=== PATIENT | female | born 1960 | race Caucasian/White ===

== ENCOUNTER 2017-01-12 12:38 | Emergency (ER) | payer OTHER ==
[~2017-01-12 12:38] MED LIST: AMLO1CAP5 PO; DEXA5DRO OP
--- NOTE | 2017-01-12 13:54 | RAD ---
CT abdomen and pelvis without contrast History: Hematuria, left flank pain since previous day. Comparison: None. Technique: Helical CT of the abdomen and pelvis was performed without intravenous or oral contrast. Axial, sagittal, and coronal reconstructions were obtained. One or more of the following individualized dose reduction techniques were utilized for the study: Automated exposure control Adjustment of mA and/or kV according to patient's size Use of iterative reconstruction technique. Findings: Evaluation of the solid organs is limited by lack of intravenous contrast. Evaluation of enteric structures may be limited by lack of oral contrast. There is also motion artifact at several levels which could obscure subtle abnormalities. Fatty liver disease is seen. Spleen, pancreas, and bilateral adrenal glands are unremarkable. Gallbladder is absent. There is no evidence of bowel obstruction. No free air or free fluid is identified in the abdomen or pelvis. Appendix appears within normal limits. Urinary bladder is unremarkable. Bilateral tubal ligation clips are seen. Uterus and adnexa are otherwise unremarkable appearance. Bilateral kidneys and ureters are free of stone or obstruction. Small fat-containing umbilical hernia is seen. Degenerative changes are present in spine. Impression: 1. No acute abnormality identified in the abdomen or pelvis. No evidence of urinary stone. 2. Small fat-containing umbilical hernia.
[2017-01-12 13:55] LABS: BILIRUBIN,URINE NEG (NEG); CLARITY,URINE CLEAR; COLOR,URINE YELLOW; GLUCOSE,URINE NEG (NEG)
[2017-01-12 13:56] LABS: NITRITE,URINE NEG (NEG); UROBILINOGEN,URINE 0.2 mg/dL (0.2 mg/dL)
[2017-01-12 14:02] LABS: BACTERIA,URINE FEW /HPF (0-FEW); GRANULAR CASTS,URINE FEW /HPF; HYALINE CASTS, URINE FEW /HPF; SQUAMOUS EPITHELIAL CELL,UR FEW /LPF
[2017-01-12 14:30] VITALS: BP 133/83
--- NOTE | 2017-01-12 16:45 | ED.ADGEN ---
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 Patient states pain first in 4 days ago when she was stretching while reaching with an outstretched left arm. Patient has since had 4 -5 episodes of sharp, left-sided chest wall pain worse with movement and arm use. Most recent episode occurred just prior to ED arrival. Patient's taken ibuprofen and Tylenol for pain. She is currently pain-free. No other acute symptoms or complaints. Review of Systems Review of Systems ROS as per HPI. Allergies Allergies Allergies Coded Allergies Type Severity Reaction Last Updated Verified morphine Adverse Reaction Mild N/V 10/08/15 Yes Physical Exam Physical Exam Constitutional: Well developed, well nourished, no acute distress, non-toxic appearance. HENT: Normocephalic, atraumatic, bilateral external ears normal, oropharynx moist, no oral exudates, nose normal. Eyes: PERRLA, EOMI, conjunctiva normal. Neck: Normal range of motion, no tenderness. Cardiovascular:Heart rate regular rhythm, no murmur. Lungs & Thorax: Bilateral breath sounds clear to auscultation. Left lower mid axillary chest wall pain, tenderness reproduces with palpation and trunk rotation. No subcutaneous emphysema bony crepitus or hernia appreciated. Abdomen: Bowel sounds normal, soft, no tenderness. Skin: Warm, dry, no erythema, no rash. Back: No tenderness. Extremities: No tenderness, no cyanosis, no clubbing, ROM intact, no edema. Neurologic: Alert and oriented X 3, normal motor function, normal sensory function, no focal deficits noted. Psychologic: Affect normal, judgement normal, mood normal. Current Patient Data Vital Signs Vital Signs Date Time Temp Pulse Resp B/P Pulse Ox O2 Delivery O2 Flow Rate FiO2 01/12/17 14:30 89 18 133/83 98 Room Air 01/12/17 12:38 97.9 Lab Results Laboratory Tests Test 01/12/17 13:15 Urine Collection Type Unknown Urine Color Yellow Urine Clarity Clear Urine pH 5.0 Urine Specific [place] 1.025 Urine Protein Neg (NEG-TRACE) Urine Glucose (UA) Negmg/dL (NEG) Urine Ketones (Stick) Negmg/dL (NEG) Urine Blood Trace (NEG) Urine Nitrite Neg (NEG) Urine Bilirubin Neg (NEG) Urine Urobilinogen Dipstick 0.2mg/dL (0.2 mg/dL) Urine Leukocyte Esterase Neg (NEG) Urine RBC 3-5/HPF (0-2) Urine WBC 1-4/HPF (0-4) Urine Squamous Epithelial Cells Few/LPF Urine Bacteria Few/HPF (0-FEW) Urine Hyaline Casts Few/HPF Urine Granular Casts Few/HPF Urine Mucus Slight/LPF EKG EKG [] Radiology/Procedures Radiology/Procedures [CT abdomen and pelvis: No acute pathology per radiology report ] Impressions: Patient currently pain-free in the ED with reproducible musculoskeletal pain. Concern that patient may have alternative cause of pain. No findings kidney stone on CT abdomen pelvis. Other diagnoses considered but felt less likely. Will treat supportively with PCP follow-up. Courtesy work note provided. Course & Med Decision Making Course & Med Decision Making Pertinent Labs and Imaging studies reviewed. (See chart for details) [] Final Impression Final Impression [#1 Left flank pain] Problems: Dragon Disclaimer Dragon Disclaimer This electronic medical record was generated, in whole or in part, using a voice recognition dictation system. KEON GUILLEN DO Jan 12, 2017 16:45
== END 2017-01-12 14:30 | disposition home or self-care (01) ==
LOC: ER 12:38
DX: R10.9 Unspecified abdominal pain (principal); M79.1 Myalgia; E78.00 Pure hypercholesterolemia, unspecified; I10 Essential (primary) hypertension; Z98.890 Other specified postprocedural states; Z98.51 Tubal ligation status; Z88.5 Allergy status to narcotic agent
CPT/HCPCS: 74176; 81001; 99284-25

== ENCOUNTER 2017-09-03 09:53 | Emergency (ER) | payer OTHER ==
[~2017-09-03] VITALS: Ht 182.9 cm; Wt 114.3 kg
--- NOTE | 2017-09-03 10:42 | PHYS DOC ---
Past History Past Medical History: High Cholesterol, Hypertension, Other Past Surgical History: Cholecystectomy, , Tubal ligation, Other Alcohol Use: None Drug Use: None Adult General Chief Complaint Chief Complaint: FLANK PAIN HPI HPI Patient is a 57 year old female who presents with complaint of right-sided flank pain. Patient states that her pain has been intermittent over the past 5 days. Patient denies any visible blood in her urine and denies any abdominal pain currently. Patient states that her flank pain comes and goes and is associated with nausea. Patient has had no fevers, vomiting, or diarrhea. The patient was seen in the emergency department in December [address] scan at that time after being found to have hematuria. The CT scan at that time showed no evidence of stone in either her kidneys or ureter at that time. Patient has not taken any medications to help with her symptoms. The patient stated that she wanted to be checked today and tried to see her primary doctor, however her doctor is not available on so she came to the emergency department for evaluation. [] Review of Systems Review of Systems Constitutional: Denies fever or chills [] Eyes: Denies change in visual acuity, redness, or eye pain [] HENT: Denies nasal congestion or sore throat [] Respiratory: Denies cough or shortness of breath [] Cardiovascular: Denies chest pain or edema[] GI: Nausea, denies abdominal pain, vomiting, bloody stools or diarrhea [] : Denies dysuria or hematuria [] Musculoskeletal: Right flank pain.[] Integument: Denies rash or skin lesions [] Neurologic: Denies headache, focal weakness or sensory changes [] All other systems were reviewed and found to be within normal limits, except as documented in this note. Allergies Allergies Allergies Coded Allergies Type Severity Reaction Last Updated Verified morphine Adverse Reaction Mild N/V 10/08/15 Yes Physical Exam Physical Exam Constitutional: Alert, obese, afebrile, no acute distress. [] HENT: Normocephalic, atraumatic, bilateral external ears normal, oropharynx moist, no oral exudates, nose normal. [] Eyes: PERRLA, EOMI, conjunctiva normal, no discharge. [] Neck: Normal range of motion, no tenderness, supple, no stridor. [] Cardiovascular:Heart rate regular rhythm, no murmur [] Lungs & Thorax: Bilateral breath sounds clear to auscultation [] Abdomen: Bowel sounds normal, soft, no tenderness, no masses, no pulsatile masses. [] Skin: Warm, dry, no erythema, no rash. [] Back: Mild right CVA tenderness to palpation, no midline tenderness, no flank ecchymosis. [] Extremities: No tenderness, no cyanosis, no clubbing, ROM intact, no edema. [] Neurologic: Alert and oriented X 3, normal motor function, normal sensory function, no focal deficits noted. [] Current Patient Data Vital Signs Vital Signs Date Time Temp Pulse Resp B/P (MAP) Pulse Ox O2 Delivery O2 Flow Rate FiO2 09/03/17 10:00 98.2 84 18 98 Room Air Lab Results Laboratory Tests Test 09/03/17 10:43 09/03/17 10:45 White Blood Count 5.5 x10^3/uL Red Blood Count 3.97 x10^6/uL Hemoglobin 12.3 g/dL Hematocrit 35.1 % Mean Corpuscular Volume 89 fL Mean Corpuscular Hemoglobin 31 pg Mean Corpuscular Hemoglobin Concent 35 g/dL Red Cell Distribution Width 14.3 % Platelet Count 268 x10^3/uL Neutrophils (%) (Auto) 54 % Lymphocytes (%) (Auto) 31 % Monocytes (%) (Auto) 11 % Eosinophils (%) (Auto) 4 % Basophils (%) (Auto) 1 % Neutrophils # (Auto) 2.9 x10^3uL Lymphocytes # (Auto) 1.7 x10^3/uL Monocytes # (Auto) 0.6 x10^3/uL Eosinophils # (Auto) 0.2 x10^3/uL Basophils # (Auto) 0.0 x10^3/uL Sodium Level 142 mmol/L Potassium Level 3.5 mmol/L Chloride Level 106 mmol/L Carbon Dioxide Level 24 mmol/L Anion Gap 12 Blood Urea Nitrogen 24 mg/dL Creatinine 1.2 mg/dL Estimated GFR (Cockcroft-Gault) 46.3 BUN/Creatinine Ratio 20 Glucose Level 113 mg/dL Calcium Level 8.6 mg/dL Total Bilirubin 0.3 mg/dL Aspartate Amino Transf (AST/SGOT) 20 U/L Alanine Aminotransferase (ALT/SGPT) 32 U/L Alkaline Phosphatase 85 U/L Total Protein 6.8 g/dL Albumin 3.6 g/dL Albumin/Globulin Ratio 1.1 Lipase 203 U/L Urine Collection Type Void Urine Color Yellow Urine Clarity Clear Urine pH 6.5 Urine Specific [place] 1.015 Urine Protein Neg Urine Glucose (UA) Neg mg/dL Urine Ketones (Stick) Neg mg/dL Urine Blood Trace Urine Nitrite Neg Urine Bilirubin Neg Urine Urobilinogen Dipstick 0.2 mg/dL Urine Leukocyte Esterase Neg Urine RBC 1-2 /HPF Urine WBC 1-4 /HPF Urine Squamous Epithelial Cells Few /LPF Urine Bacteria Few /HPF Urine Hyaline Casts Occ /HPF Urine Granular Casts Few /HPF Urine Mucus Slight /LPF EKG EKG Not performed[] Radiology/Procedures Radiology/Procedures Not performed[] Course & Med Decision Making Course & Med Decision Making Pertinent Labs and Imaging studies reviewed. (See chart for details) Patient remained in no acute distress in the emergency department. The patient' s lab work showed leukocytes and red blood cells in the urine with few bacteria. There was no leukoesterase or nitrites. Remainder of exam unremarkable. Given that the patient has had a CT scan approximately 8 months ago that showed no evidence of renal or ureteral calculi, the presence of kidney stone would be unlikely in this scenario. Patient will be started on antibiotic for treatment of possible pyelonephritis. Patient also prescribed ibuprofen. Advised patient follow-up with primary doctor in 3-4 days for reevaluation and to return emergency department for any worsening symptoms. Patient voiced understanding and in agreement with treatment plan. Dragon Disclaimer Dragon Disclaimer This electronic medical record was generated, in whole or in part, using a voice recognition dictation system. Departure Departure: Impression: Primary Impression: Right flank pain Disposition: 01 HOME, SELF-CARE Condition: IMPROVED Referrals: CESAR HERNANDEZ (PCP) Patient Instructions: Flank Pain Additional Instructions: Follow-up with your primary doctor in 3-4 days for reevaluation. Return to the emergency department for any worsening symptoms. Scripts Ibuprofen (IBUPROFEN) 600 Mg Tablet 600 MG PO Q6HRS Y for PAIN, #30 TAB Prov: BRYAN SUGGS MD 09/03/17 Cephalexin (KEFLEX) 500 Mg Capsule 1 CAP PO TID, #30 CAP Prov: BRYAN SUGGS MD 09/03/17 BRYAN SUGGS MD Sep 03, 2017 10:42
[2017-09-03 10:55] LABS: BASO % 1 % (0-3); EOS # 0.2 x10^3/uL (0.0-0.7); EOS % 4 % (0-3); HEMATOCRIT 35.1 % (36.0-47.0); HEMOGLOBIN 12.3 g/dL (12.0-15.5); LYMPH # 1.7 x10^3/uL (1.0-4.8); LYMPH % 31 % (24-48); MEAN CORPUSCULAR HEMOGLOBIN 31 pg (25-35); MEAN CORPUSCULAR HGB CONC 35 g/dL (31-37); MEAN CORPUSCULAR VOLUME 89 fL (79-100); MONO # 0.6 x10^3/uL (0.0-1.1); MONO % 11 % (0-9); NEUT # 2.9 x10^3uL (1.8-7.7); NEUT % 54 % (31-73); PLATELET COUNT 268 x10^3/uL (140-400); RED BLOOD COUNT 3.97 x10^6/uL (3.50-5.40); RED CELL DISTRIBUTION WIDTH 14.3 % (11.5-14.5); WHITE BLOOD COUNT 5.5 x10^3/uL (4.0-11.0)
[2017-09-03 11:06] LABS: ALBUMIN 3.6 g/dL (3.4-5.0); ALBUMIN/GLOBULIN RATIO 1.1 (1.0-1.7); CALCIUM 8.6 mg/dL (8.5-10.1); CREATININE 1.2 mg/dL (0.6-1.0); GFR 46.3; POTASSIUM 3.5 mmol/L (3.5-5.1); TOTAL BILIRUBIN 0.3 mg/dL (0.2-1.0); TOTAL PROTEIN 6.8 g/dL (6.4-8.2)
[2017-09-03 11:31] LABS: BACTERIA,URINE FEW /HPF (0-FEW); BILIRUBIN,URINE NEG (NEG); CLARITY,URINE CLEAR; COLOR,URINE YELLOW; GLUCOSE,URINE NEG (NEG); GRANULAR CASTS,URINE FEW /HPF; HYALINE CASTS, URINE OCC /HPF; NITRITE,URINE NEG (NEG); SQUAMOUS EPITHELIAL CELL,UR FEW /LPF; UROBILINOGEN,URINE 0.2 mg/dL (0.2 mg/dL)
[2017-09-03] MEDS ORDERED: CEPH-264 PO (12:00)
[2017-09-03] MEDS ORDERED: IBUP600T16 PO (12:00)
[2017-09-03 12:13] VITALS: BP 158/92
== END 2017-09-03 12:10 | disposition home or self-care (01) ==
LOC: ER 09:53
DX: R10.9 Unspecified abdominal pain (principal); R31.9 Hematuria, unspecified; R11.0 Nausea; I10 Essential (primary) hypertension; E78.00 Pure hypercholesterolemia, unspecified; Z90.49 Acquired absence of other specified parts of digestive tract; Z98.51 Tubal ligation status; Z98.890 Other specified postprocedural states; Z88.5 Allergy status to narcotic agent
CPT/HCPCS: 36415; 80053; 81001; 83690; 85025; 99284

== ENCOUNTER → 2017-11-10 | Outpatient (CLI) | payer OTHER ==
[~2017-11-10] MED LIST changes: +CEPH-264 PO; +IBUP600T16 PO
--- NOTE | 2017-11-11 10:26 | RAD ---
DATE: November 10, 2017 EXAM: MAMMO DONALDO SCREENING BILATERAL HISTORY: Screening study. COMPARISON: September 30, 2013 This study was interpreted with the benefit of Computerized Aided Detection (CAD). 2-D digital mammographic views of both breasts were performed in the CC and MLO projections. 3-D digital tomosynthesis of both breasts were performed in the CC and MLO projections and reviewed on a computer workstation. FINDINGS: The breast parenchyma is mildly dense and scattered. Small bilateral breast nodules are seen. There. Is an intramammary lymph node with an eccentric fatty radiolucency of the posterior upper outer quadrant of the right breast There are no dominant suspicious masses, suspicious microcalcifications or evidence of architectural distortion. IMPRESSION: No mammographic indicators for malignancy. BI-RADS CATEGORY: 2 BENIGN FINDING RECOMMENDED FOLLOW-UP: 12M 12 MONTH FOLLOW-UP PQRS compliance statement: Patient information was entered into a reminder system with a target due date November 11, 2018 for the next mammogram. Mammography is a sensitive method for finding small breast cancers, but it does not detect them all and is not a substitute for careful clinical examination. A negative mammogram does not negate a clinically suspicious finding and should not result in delay in biopsying a clinically suspicious abnormality. "Our facility is accredited by the [employer] Mammography Program." The patient's breast density may affect the ability of mammography to detect breast cancer. There are 4 categories of breast density, A, B, C and D. Breast density A means that most of the breast tissue is replaced with adipose tissue and therefore is not dense. Breast density B means that the breast tissue is mildly dense and scattered. Breast density C means that the breast tissue is heterogeneously dense. Breast density D means that the breast tissue is very dense. Breast densities especially C and D may decrease the sensitivity of mammography to detect breast cancer. Therefore, the patient may benefit from 3-D breast mammography (3D breast tomography) as a part of their screening mammogram. Insurance may or may not pay for this additional imaging. The patient's breast density based on today's mammogram is category B.
== END | disposition home or self-care (01) ==
LOC: MAMMO 11:04
PROVIDERS: ATTEND Physician Assistant Medical
DX: Z12.31 Encounter for screening mammogram for malignant neoplasm of breast (principal)
CPT/HCPCS: 77063; 77067

== ENCOUNTER → 2018-06-14 | Outpatient (CLI) | payer OTHER ==
--- NOTE | 2018-06-14 16:21 | RAD ---
CT HEAD WO CONTRAST Clinical indications: SYNCOPAL EPISODE A FEW DAYS AGO, HAS HAD A HEADACHE ON THE TOP OF HER HEAD. NO INJURY COMPARISON: None available. Technique: Noncontrast axial cross sectional scanning of the head was performed. PQRS compliance Statement One or more of the following individualized dose reduction techniques were utilized for this study: 1. Automated exposure control 2. Adjustment of the mA and/or kV according to patient size 3. Use of iterative reconstruction technique Findings: No acute intracranial hemorrhage or midline shift or mass-effect or hydrocephalus or extra-axial fluid collection is seen. No focal hypodense area or sulci effacement is seen to indicate an acute infarct or edema radiographically. No skull fracture or pneumocephalus is seen. No opacification of the mastoid sinuses or the paranasal sinuses is seen. The maxillary sinuses are not completely seen in this study. Impression: No acute intracranial abnormality is seen. Electronically signed by: Alexander Quintero MD (06/14/2018 4:18 PM) [id number]
== END | disposition home or self-care (01) ==
LOC: PMG 09:26
PROVIDERS: ATTEND Neuromusculoskeletal Medicine & OMM
DX: R51 Headache (principal); R55 Syncope and collapse; R53.83 Other fatigue; I10 Essential (primary) hypertension; E78.00 Pure hypercholesterolemia, unspecified; E87.6 Hypokalemia; Z90.49 Acquired absence of other specified parts of digestive tract
CPT/HCPCS: 70450; 84443

== ENCOUNTER → 2018-08-09 | Outpatient (CLI) | payer OTHER ==
[2018-08-09 10:13] LABS: BASO % 0 % (0-3); EOS # 0.1 x10^3/uL (0.0-0.7); EOS % 1 % (0-3); HEMATOCRIT 38.4 % (36.0-47.0); HEMOGLOBIN 13.1 g/dL (12.0-15.5); LYMPH # 1.4 x10^3/uL (1.0-4.8); LYMPH % 17 % (24-48); MEAN CORPUSCULAR HEMOGLOBIN 31 pg (25-35); MEAN CORPUSCULAR HGB CONC 34 g/dL (31-37); MEAN CORPUSCULAR VOLUME 91 fL (79-100); MONO # 0.6 x10^3/uL (0.0-1.1); MONO % 8 % (0-9); NEUT # 6.3 x10^3uL (1.8-7.7); NEUT % 74 % (31-73); PLATELET COUNT 287 x10^3/uL (140-400); RED BLOOD COUNT 4.24 x10^6/uL (3.50-5.40); RED CELL DISTRIBUTION WIDTH 14.1 % (11.5-14.5); WHITE BLOOD COUNT 8.5 x10^3/uL (4.0-11.0)
[2018-08-09 10:31] LABS: ALBUMIN 4.1 g/dL (3.4-5.0); ALBUMIN/GLOBULIN RATIO 1.3 (1.0-1.7); CREATININE 1.1 mg/dL (0.6-1.0); POTASSIUM 3.7 mmol/L (3.5-5.1); TOTAL BILIRUBIN 0.4 mg/dL (0.2-1.0); TOTAL PROTEIN 7.3 g/dL (6.4-8.2); URIC ACID 5.7 mg/dL (2.6-6.0)
[2018-08-09 11:16] LABS: SEDIMENTATION RATE 6 (0-25)
== END | disposition home or self-care (01) ==
LOC: PMG 09:33
PROVIDERS: ATTEND Physician Assistant Medical
DX: M10.9 Gout, unspecified (principal)
CPT/HCPCS: 36415; 80053; 84550; 85025; 85651

== ENCOUNTER 2018-12-02 11:38 | Emergency (ER) | payer OTHER ==
[~2018-12-02] VITALS: Ht 182.9 cm; Wt 113.4 kg
[2018-12-02 11:44] VITALS: BP 144/86
--- NOTE | 2018-12-02 12:20 | PHYS DOC ---
Past History Past Medical History: Hypertension, Other Past Surgical History: Cholecystectomy, Knee Replacement Alcohol Use: None Drug Use: None Adult General Chief Complaint Chief Complaint: SHOULDER INJURY [facility] HPI Patient is a 58 year old right handed female who presents with complaining of left shoulder injury. 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 Patient states the pain is an intermittent pain that happens with movement of her left extremity area patient rated her pain 10 over 10 with activity and denies focal neuro deficit, fever and chills, nausea and vomiting. Patient states she took muscle relaxant and Aleve with partial improvement of the pain. Patient has history of right rotator cuff tear surgery. Review of Systems Review of Systems Constitutional: Denies fever or chills [] Eyes: Denies change in visual acuity, redness, or eye pain [] HENT: Denies nasal congestion or sore throat [] Respiratory: Denies cough or shortness of breath [] Cardiovascular: No additional information not addressed in HPI [] GI: Denies abdominal pain, nausea, vomiting, bloody stools or diarrhea [] : Denies dysuria or hematuria [] Musculoskeletal: Denies back pain or joint pain [] Integument: Denies rash or skin lesions [] Neurologic: Denies headache, focal weakness or sensory changes [] Endocrine: Denies polyuria or polydipsia [] All other systems were reviewed and found to be within normal limits, except as documented in this note. Allergies Allergies Allergies Coded Allergies Type Severity Reaction Last Updated Verified morphine Adverse Reaction Mild N/V 10/08/15 Yes Physical Exam Physical Exam Constitutional: Well developed, well nourished, no acute distress, non-toxic appearance. [] HENT: Normocephalic, atraumatic. Eyes: PERRLA, EOMI, conjunctiva normal, no discharge. [] Neck: Normal range of motion, no tenderness, supple, no stridor. [] Cardiovascular:Heart rate regular rhythm, no murmur [] Lungs & Thorax: Bilateral breath sounds clear to auscultation [] Skin: Warm, dry, no erythema, no rash. [] Extremities: Left shoulder without deformity or edema, painful range of abduction and external rotation , no tenderness, no cyanosis, no clubbing, ROM intact, no edema. [] Neurologic: Alert and oriented X 3, normal motor function, normal sensory function, no focal deficits noted. [] Psychologic: Affect normal, judgement normal, mood normal. [] Current Patient Data Vital Signs Vital Signs Date Time Temp Pulse Resp B/P (MAP) Pulse Ox O2 Delivery O2 Flow Rate FiO2 12/02/18 11:44 98.0 78 22 96 Room Air EKG EKG [] Radiology/Procedures Radiology/Procedures [address] [address] IMAGING REPORT Signed PATIENT: DAVID BECKWITH ACCOUNT: [id number] : 1960 LOCATION: ER AGE: 58 SEX: F EXAM STATUS: REG ER ORD. PHYSICIAN: KIKA PAN MD REASON: injury PROCEDURE: SHOULDER 2+V LEFT LEFT SHOULDER , 3 VIEWS Clinical Indication: LEFT SHOULDER PAIN, WORSE WITH RAISING ARM, FALL AT WORK YESTERDAY Comparison: None. Findings: There is no acute fracture or dislocation. The acromioclavicular and glenohumeral joints are intact. The visualized lung is clear. There is no evidence of a displaced rib fracture. There is no soft tissue abnormality. IMPRESSION: No acute fracture or dislocation. Electronically signed by: Talon Mai MD (12/02/2018 12:27 PM) [id number] DICTATED AND SIGNED BY: TALON MAI MD DATE: 12/02/18 1227 CC: KIKA PAN MD; CESAR HERNANDEZ ~ Course & Med Decision Making Course & Med Decision Making Pertinent Imaging studies reviewed. (See chart for details) Evaluation of patient in ER showed 58-year-old female patient presented with sports related injury to left shoulder. Patient had unremarkable physical exam except for limited range of motion because of pain. X-ray did not show acute finding. Shoulder splint was applied and patient instructed to follow-up with orthopedic physician. Work excuse for not using left upper extremity until seen by orthopedic physician was given. Dragon Disclaimer Dragon Disclaimer This electronic medical record was generated, in whole or in part, using a voice recognition dictation system. Departure Departure: Impression: Primary Impression: Sprain of left shoulder joint Disposition: HOME, SELF-CARE (at 1233) Condition: IMPROVED Referrals: CESAR HERNANDEZ (PCP) Patient Instructions: Rotator Cuff Injury, Shoulder Sprain Additional Instructions: Apply ice on affected area Continue home muscle relaxant and Aleve Follow-up with ultrasonographer orthopedic physician Dr. Hunter, called [phone] to make an appointment in 2 or 3 days Follow-up with your primary care physician in 3-5 days Return to ER if not getting better Scripts Tramadol Hcl (ULTRAM) 50 Mg Tablet 50 MG PO PRN Q6HRS PRN for PAIN, #20 TAB Prov: KIKA PAN MD 12/02/18 Methylprednisolone (MEDROL) 4 Mg Tab.ds.pk 1 PKG PO UD for inflammation, #1 PKG Prov: KIKA PAN MD 12/02/18 Problem Qualifiers Primary Impression: Sprain of left shoulder joint Encounter type: initial encounter Shoulder sprain type: rotator cuff capsule Qualified Codes: S43.422A - Sprain of left rotator cuff capsule, initial encounter KIKA PAN MD Dec 02, 2018 12:20
--- NOTE | 2018-12-02 12:29 | RAD ---
LEFT SHOULDER , 3 VIEWS Clinical Indication: LEFT SHOULDER PAIN, WORSE WITH RAISING ARM, FALL AT WORK YESTERDAY Comparison: None. Findings: There is no acute fracture or dislocation. The acromioclavicular and glenohumeral joints are intact. The visualized lung is clear. There is no evidence of a displaced rib fracture. There is no soft tissue abnormality. IMPRESSION: No acute fracture or dislocation. Electronically signed by: Talon Mai MD (12/02/2018 12:27 PM) [id number]
[2018-12-02] MEDS ORDERED: METH4TAB2 PO (12:35)
[2018-12-02] MEDS ORDERED: TRAM-48 PO (12:35)
== END 2018-12-02 12:42 | disposition home or self-care (01) ==
LOC: ER 11:38
DX: S43.422A Sprain of left rotator cuff capsule, initial encounter (principal); I10 Essential (primary) hypertension; Z88.5 Allergy status to narcotic agent; W18.39XA Other fall on same level, initial encounter; Y93.89 Activity, other specified; Y92.89 Other specified places as the place of occurrence of the external cause; Y99.0 Civilian activity done for income or pay
CPT/HCPCS: 73030; 99283

== ENCOUNTER → 2018-12-30 | Outpatient (CLI) | payer OTHER ==
[2018-12-02 11:44] VITALS: BP 144/86
[~2018-12-30] MED LIST changes: +METH4TAB2 PO; +TRAM-48 PO
--- NOTE | 2018-12-31 18:35 | RAD ---
DATE: 12/30/2018 EXAM: MAMMO DONALDO SCREENING BILATERAL HISTORY: Routine screening COMPARISON: 09/30/2013 and 11/10/2017 mammographic exams This study was interpreted with the benefit of Computerized Aided Detection (CAD). Breast Density: SCATTERED The breast parenchyma shows scattered fibroglandular densities. Breast parenchyma level B. FINDINGS: No dominant masses, distortion, or suspicious calcifications. Multiple small masses bilaterally are present and stable. IMPRESSION: No suspicious new finding. BI-RADS CATEGORY: 1 NEGATIVE RECOMMENDED FOLLOW-UP: 12M 12 MONTH FOLLOW-UP PQRS compliance statement: Patient information was entered into a reminder system with a target due date in one year for the next mammogram. Mammography is a sensitive method for finding small breast cancers, but it does not detect them all and is not a substitute for careful clinical examination. A negative mammogram does not negate a clinically suspicious finding and should not result in delay in biopsying a clinically suspicious abnormality. "Our facility is accredited by the [employer] Mammography Program."
== END | disposition home or self-care (01) ==
LOC: MAMMO 13:00
PROVIDERS: ATTEND Physician Assistant Medical
DX: Z12.31 Encounter for screening mammogram for malignant neoplasm of breast (principal)
CPT/HCPCS: 77063; 77067

== ENCOUNTER → 2019-01-06 | Outpatient (CLI) | payer OTHER ==
--- NOTE | 2019-01-06 08:53 | RAD ---
AP and lateral views left knee 01/06/2019 6:13 AM Indication: left knee pain, hx knee replacement Comparison: None Findings: There are postsurgical changes following knee arthroplasty. No fracture or dislocation is seen. No convincing radiographic evidence of loosening is identified. On the AP view there is apparent narrowing of the medial compartment joint space. A definitive joint effusion is not seen. IMPRESSION: 1. Postsurgical changes following knee arthroplasty 2. Apparent narrowing of the medial joint space. Asymmetrical wearing of the medial radiolucent polyethylene component (if present) is possible. Correlate with type of knee prosthesis. Electronically signed by: Apollo Morris MD (01/06/2019 8:50 AM) [id number]
[2019-01-06 13:24] LABS: TRIGLYCERIDES 138 mg/dL (0-150)
== END | disposition home or self-care (01) ==
LOC: LAB 06:00
PROVIDERS: ATTEND Physician Assistant Medical
DX: M25.562 Pain in left knee (principal); R25.2 Cramp and spasm
CPT/HCPCS: 36415; 73560; 82465; 82947; 84478

== ENCOUNTER → 2019-03-17 | Outpatient (CLI) | payer OTHER ==
--- NOTE | 2019-03-17 16:37 | RAD ---
Left neck ultrasound, 03/17/2019: HISTORY: Palpable lump and pain The area of clinical concern in the left neck was carefully scanned. There are several elongated lymph nodes present at this level. The largest of these measures only 4 mm in short axis dimension and is not considered to be enlarged. These nodes demonstrate echogenic mervin. No suspicious left neck mass or abnormal fluid collection is seen. IMPRESSION: Multiple small left cervical lymph nodes are identified without pathologic enlargement. Clinical surveillance is suggested. Electronically signed by: Samy Meza MD (03/17/2019 4:34 PM) [facility]
== END | disposition home or self-care (01) ==
LOC: US 14:03
PROVIDERS: ATTEND Physician Assistant Medical
DX: R22.1 Localized swelling, mass and lump, neck (principal)
CPT/HCPCS: 76536

== ENCOUNTER → 2019-03-21 | Outpatient (CLI) | payer OTHER ==
--- NOTE | 2019-03-21 10:14 | RAD ---
Chest radiograph 03/21/2019 12:00 AM INDICATION: Cough COMPARISON: December 14, 2012 TECHNIQUE: Frontal and lateral views of the chest are provided. FINDINGS: The cardiomediastinal silhouette is within normal limits. There are no pleural effusions. There is no pulmonary vascular congestion. There is no pneumothorax. Mild peribronchial cuffing may be associated with bronchitis. Anterior cervical discectomy and fusion hardware is identified within the visualized portions of the lower cervical spine. IMPRESSION: Mild peribronchial cuffing may be associated with bronchitis. No focal airspace consolidation. Electronically signed by: Josephine Rivers MD (03/21/2019 10:11 AM) [id number]
== END | disposition home or self-care (01) ==
LOC: PMG 09:32
PROVIDERS: ATTEND Physician Assistant Medical
DX: J98.09 Other diseases of bronchus, not elsewhere classified (principal)
CPT/HCPCS: 71046

== ENCOUNTER → 2019-03-22 | Outpatient (CLI) | payer OTHER ==
[~2019-03-22] MED LIST changes: +IOHEXOL 300 MG/ML 75 ML VIAL. IV ONE
--- NOTE | 2019-03-22 11:48 | RAD ---
PQRS Compliance Statement: One or more of the following individualized dose reduction techniques were utilized for this examination: 1. Automated exposure control 2. Adjustment of the mA and/or kV according to patient size 3. Use of iterative reconstruction technique CT CHEST W/CONTRAST Clinical Indication: Abnormal chest radiograph. Comparison: Two-view chest, prior day. TECHNIQUE: Helical CT imaging of the chest is performed after 75 cc Omnipaque 300 IV contrast. Findings: The thyroid is symmetric. There is no adenopathy in the chest. No central pulmonary embolus. No thoracic aortic dissection. The right main pulmonary artery diameter is prominent. Cardiac size normal, no pericardial effusion. There is no pleural effusion. The central airways are patent. There is mild atelectasis in the posterior lower lobes bilaterally. No lung consolidation. No peribronchial thickening is identified. Punctate calcified granuloma right middle lobe. Cholecystectomy. ACDF hardware is partially seen. Degenerative endplate spurring of the thoracic spine. Posterior bridging endplate spurs of T4-T5 narrow the central canal, probably mild to moderate. IMPRESSION: 1. Mild atelectasis in the posterior lower lobes bilaterally. 2. Endplate spurring of T4-T5 produces central canal stenosis, probably mild to moderate. Electronically signed by: Talon Mai MD (03/22/2019 11:46 AM) [id number]
== END | disposition home or self-care (01) ==
LOC: CT 07:33
PROVIDERS: ATTEND Physician Assistant Medical
DX: J98.11 Atelectasis (principal); M48.04 Spinal stenosis, thoracic region; M46.04 Spinal enthesopathy, thoracic region; J84.10 Pulmonary fibrosis, unspecified; I10 Essential (primary) hypertension; F17.200 Nicotine dependence, unspecified, uncomplicated
CPT/HCPCS: 71260; Q9967

== ENCOUNTER → 2019-05-16 | Outpatient (CLI) | payer OTHER ==
[~2019-05-16] MED LIST changes: -IOHEXOL 300 MG/ML 75 ML VIAL. IV ONE
== END | disposition home or self-care (01) ==
LOC: PMG 08:53
PROVIDERS: ATTEND Physician Assistant Medical
DX: R30.0 Dysuria (principal)
CPT/HCPCS: 87086

== ENCOUNTER → 2019-09-15 | Outpatient (CLI) | payer OTHER ==
--- NOTE | 2019-09-15 08:43 | RAD ---
EXAM: Chest, 2 views. HISTORY: Shortness of breath. Wheezing. COMPARISON: 03/22/2019 FINDINGS: 2 views of the chest are obtained. There is bilateral lower lobe atelectasis or interstitial infiltrate. There is no consolidation, pleural effusion or pneumothorax. The heart is normal in size. There is cervical spinal fusion instrumentation. IMPRESSION: Suspected bilateral lower lobe atelectasis or interstitial infiltrate. Electronically signed by: Winnie Zaragoza MD (09/15/2019 8:40 AM) [place] [id number]
== END | disposition home or self-care (01) ==
LOC: PMG 08:21
PROVIDERS: ATTEND Physician Assistant
DX: R06.00 Dyspnea, unspecified (principal)
CPT/HCPCS: 71046

== ENCOUNTER → 2020-04-06 | Outpatient (CLI) | payer OTHER | END | disposition home or self-care (01) | LOC: LAB 09:09 | PROVIDERS: ATTEND Internal Medicine Cardiovascular Disease | DX: Z20.828 Contact with and (suspected) exposure to other viral communicable diseases (principal) | CPT/HCPCS: C9803; U0003; 36415 ==

== ENCOUNTER → 2020-04-12 | Outpatient (CLI) | payer OTHER | END | disposition home or self-care (01) | LOC: LAB 10:19 | PROVIDERS: ATTEND Internal Medicine Cardiovascular Disease | DX: Z20.828 Contact with and (suspected) exposure to other viral communicable diseases (principal) | CPT/HCPCS: C9803; U0003; 36415 ==

== ENCOUNTER → 2020-04-25 | Outpatient (CLI) | payer BC ==
--- NOTE | 2020-04-25 12:21 | RAD ---
PA and lateral views of the chest. Comparison: 09/15/2019. Indication: Shortness of breath COPD and cough Findings: Cervical fusion hardware is reidentified. The heart size is at the upper limits of normal but stable. No pneumothorax or effusion. No air space or interstitial disease. The bony structures are intact. Impression: 1. No acute cardiopulmonary process. Electronically signed by: Guru Alvarez MD (04/25/2020 12:18 PM) [id number]
== END | disposition home or self-care (01) ==
LOC: RAD 11:43
PROVIDERS: ATTEND Physician Assistant Medical
DX: J44.9 Chronic obstructive pulmonary disease, unspecified (principal)
CPT/HCPCS: 71046

== ENCOUNTER → 2020-04-26 | Outpatient (CLI) | payer OTHER ==
[2020-04-26 08:26] LABS: BASO % 1 % (0-3); EOS # 0.1 x10^3/uL (0.0-0.7); EOS % 3 % (0-3); HEMATOCRIT 39.4 % (36.0-47.0); HEMOGLOBIN 13.3 g/dL (12.0-15.5); LYMPH % 38 % (24-48); MEAN CORPUSCULAR HEMOGLOBIN 31 pg (25-35); MEAN CORPUSCULAR HGB CONC 34 g/dL (31-37); MEAN CORPUSCULAR VOLUME 91 fL (79-100); MONO # 0.6 x10^3/uL (0.0-1.1); MONO % 12 % (0-9); NEUT # 2.6 x10^3uL (1.8-7.7); NEUT % 47 % (31-73); PLATELET COUNT 314 x10^3/uL (140-400); RED BLOOD COUNT 4.35 x10^6/uL (3.50-5.40); RED CELL DISTRIBUTION WIDTH 15.2 % (11.5-14.5); WHITE BLOOD COUNT 5.4 x10^3/uL (4.0-11.0)
[2020-04-26 08:31] LABS: ALBUMIN/GLOBULIN RATIO 1.1 (1.0-1.7); CALCIUM 9.3 mg/dL (8.5-10.1); CREATININE 1.1 mg/dL (0.6-1.0); GFR 50.7; POTASSIUM 3.9 mmol/L (3.5-5.1); TOTAL BILIRUBIN 0.4 mg/dL (0.2-1.0); TOTAL PROTEIN 7.6 g/dL (6.4-8.2)
[2020-04-26 19:35] LABS: FREE T4 1.03 ng/dL (0.76-1.46); THYROID STIM HORMONE (TSH) 3.224 uIU/mL (0.358-3.740)
== END | disposition home or self-care (01) ==
LOC: LAB 07:57
PROVIDERS: ATTEND Physician Assistant Medical
DX: I10 Essential (primary) hypertension (principal); J44.9 Chronic obstructive pulmonary disease, unspecified
CPT/HCPCS: 36415; 80053; 80061; 84439; 84443; 85025

== ENCOUNTER → 2020-07-03 | Outpatient (CLI) | payer OTHER | LOC: LAB 09:37 | PROVIDERS: ATTEND Physician Assistant Medical | DX: R05 Cough (principal); R50.9 Fever, unspecified; B97.29 Other coronavirus as the cause of diseases classified elsewhere; Z20.828 Contact with and (suspected) exposure to other viral communicable diseases | CPT/HCPCS: U0003-CS ==

== ENCOUNTER 2020-09-19 08:37 | Emergency (ER) | payer OTHER ==
[~2020-09-19] VITALS: Ht 182.9 cm; Wt 122.7 kg
[2020-09-19 09:41] LABS: BASO % 1 % (0-3); EOS # 0.1 x10^3/uL (0.0-0.7); EOS % 2 % (0-3); HEMATOCRIT 39.1 % (36.0-47.0); LYMPH # 1.5 x10^3/uL (1.0-4.8); LYMPH % 24 % (24-48); MEAN CORPUSCULAR HEMOGLOBIN 29 pg (25-35); MEAN CORPUSCULAR HGB CONC 33 g/dL (31-37); MEAN CORPUSCULAR VOLUME 88 fL (79-100); MONO # 0.7 x10^3/uL (0.0-1.1); MONO % 12 % (0-9); NEUT # 3.7 x10^3uL (1.8-7.7); NEUT % 61 % (31-73); PLATELET COUNT 272 x10^3/uL (140-400); RED BLOOD COUNT 4.45 x10^6/uL (3.50-5.40); RED CELL DISTRIBUTION WIDTH 15.9 % (11.5-14.5); WHITE BLOOD COUNT 6.1 x10^3/uL (4.0-11.0)
--- NOTE | 2020-09-19 09:46 | EKG ---
[address] [address] Test Date: 2020-09-19 Test Time: 08:51:23 Pat Name: DAVID BECKWITH Department: Room: Gender: F [employer]: AMOS : 1960 Requested By: WESLY PIERRE Order Number: [id number] Reading MD: Measurements Intervals [place] Rate: 88 P: 46 OH: 150 QRS: -19 QRSD: 92 T: 44 QT: 360 QTc: 439 Interpretive Statements SINUS RHYTHM LEFTWARD AXIS R-S TRANSITION ZONE IN V LEADS DISPLACED TO THE LEFT OTHERWISE NORMAL ECG RI6.02 No previous ECG available for comparison
[2020-09-19 09:52] LABS: CALCIUM 10.1 mg/dL (8.5-10.1); GFR 56.6; POTASSIUM 3.3 mmol/L (3.5-5.1)
[2020-09-19 09:58] LABS: ALBUMIN/GLOBULIN RATIO 1.2 (1.0-1.7); TOTAL BILIRUBIN 0.4 mg/dL (0.2-1.0); TOTAL PROTEIN 7.3 g/dL (6.4-8.2)
--- NOTE | 2020-09-19 10:06 | PHYS DOC ---
Past History Past Medical History: Hypertension Past Surgical History: Cholecystectomy, , Knee Replacement, Tubal ligation Additional Past Surgical Histo: rotator cuff, hernia Alcohol Use: None Drug Use: None General Adult EDM: Chief Complaint: SYNCOPE HPI: HPI: Patient is a 60-year-old female coming in for evaluation after a presyncopal episode about 1 hour prior to arrival. Patient was working and states she began to feel lightheaded and nauseous, did not vomit. Tissue into the bathroom to sit down. Patient states she otherwise been feeling well, has been working and felt like it was hot in the area. Says she tried to eat a little bit when she was having the symptoms but had to [place]. Patient states she has been eating and drinking normally. Has had one episode of similar symptoms in the past where she did pass all the way out. Patient states she has had a few days of intermittent cramping chest pains which she had attributed to heavy lifting. Patient states she is a history of hypertension but denies any history of diabetes or cardiac illness. There are significant history of cardiac disease or blood clots in the family. Patient states that she otherwise has been well denies any fevers, diaphoresis, coughing, vomiting, diarrhea, or any urinary changes. Review of Systems: Review of Systems: My all other systems within normal limits except for as noted in the HPI Allergies: Allergies: Allergies Coded Allergies Type Severity Reaction Last Updated Verified morphine Adverse Reaction Mild N/V 10/08/15 Yes Physical Exam: PE: Constitutional: Well developed, well nourished, no acute distress, non-toxic appearance. [] HENT: Normocephalic, atraumatic, bilateral external ears normal, nose normal. [] Eyes: PERRLA, conjunctiva normal, no discharge. [] Neck: No rigidity, supple, no stridor. [] Cardiovascular: Regular rate and rhythm, brisk cap refill, no murmurs [] Lungs & Thorax: Non labored symmetric respirations, no tachypnea or respiratory distress [] Abdomen: Soft, nondistended. Skin: Warm, dry, no erythema, no rash. [] Back: No tenderness, no CVA tenderness. [] Extremities: No deformities, range of motion grossly intact, no lower extremity edema [] Neurologic: Alert and oriented X 3, no focal deficits noted. [] Psychologic: Affect normal, judgement normal, mood normal. [] Current Patient Data: Labs: Laboratory Tests Test 09/19/20 08:49 09/19/20 09:25 Glucose (Fingerstick) 124 mg/dL (70-99) H White Blood Count 6.1 x10^3/uL (4.0-11.0) Red Blood Count 4.45 x10^6/uL (3.50-5.40) Hemoglobin 13.0 g/dL (12.0-15.5) Hematocrit 39.1 % (36.0-47.0) Mean Corpuscular Volume 88 fL (79-100) Mean Corpuscular Hemoglobin 29 pg (25-35) Mean Corpuscular Hemoglobin Concent 33 g/dL (31-37) Red Cell Distribution Width 15.9 % (11.5-14.5) H Platelet Count 272 x10^3/uL (140-400) Neutrophils (%) (Auto) 61 % (31-73) Lymphocytes (%) (Auto) 24 % (24-48) Monocytes (%) (Auto) 12 % (0-9) H Eosinophils (%) (Auto) 2 % (0-3) Basophils (%) (Auto) 1 % (0-3) Neutrophils # (Auto) 3.7 x10^3uL (1.8-7.7) Lymphocytes # (Auto) 1.5 x10^3/uL (1.0-4.8) Monocytes # (Auto) 0.7 x10^3/uL (0.0-1.1) Eosinophils # (Auto) 0.1 x10^3/uL (0.0-0.7) Basophils # (Auto) 0.0 x10^3/uL (0.0-0.2) Sodium Level 139 mmol/L (136-145) Potassium Level 3.3 mmol/L (3.5-5.1) L Chloride Level 102 mmol/L (98-107) Carbon Dioxide Level 25 mmol/L (21-32) Anion Gap 12 (6-14) Blood Urea Nitrogen 32 mg/dL (7-20) H Creatinine 1.0 mg/dL (0.6-1.0) Estimated GFR (Cockcroft-Gault) 56.6 BUN/Creatinine Ratio 32 (6-20) H Glucose Level 115 mg/dL (70-99) H Calcium Level 10.1 mg/dL (8.5-10.1) Total Bilirubin 0.4 mg/dL (0.2-1.0) Aspartate Amino Transferase (AST) 20 U/L (15-37) Alanine Aminotransferase (ALT) 32 U/L (14-59) Alkaline Phosphatase 122 U/L (46-116) H Total Protein 7.3 g/dL (6.4-8.2) Albumin 4.0 g/dL (3.4-5.0) Albumin/Globulin Ratio 1.2 (1.0-1.7) Vital Signs: Vital Signs Date Time Temp Pulse Resp B/P (MAP) Pulse Ox O2 Delivery O2 Flow Rate FiO2 09/19/20 09:30 75 16 125/68 (87) 93 Room Air 09/19/20 08:37 97.9 EKG: EKG: Normal sinus rhythm, left axis deviation, heart rate 88 beats per minutes, no ectopy, no ST elevation or depression, normal intervals [] Radiology/Procedures: Radiology/Procedures: CTA CHEST INDICATION: PE, SYNCOPE, CHEST PAIN Comparison: Radiograph 04/25/2020. CT 03/22/2019. TECHNIQUE: Following the uneventful administration of intravenous contrast, 75 cc Omnipaque 350, axial CT sections were obtained through the lungs and upper abdomen. Multiplanar reconstructions and MIP images were obtained. PQRS compliance statement: One or more of the following individualized dose reduction techniques were utilized for this examination: 1. Automated exposure control 2. Adjustment of the mA and/or kV according to patient size 3. Use of iterative reconstruction technique FINDINGS: Pulmonary arteries: No evidence of pulmonary thrombolic disease. Lungs and Airways: No pulmonary mass or consolidation. No abnormality of the central airways. Pleura: The pleural spaces are normal. Heart and Mediastinum: The visualized thyroid is normal in size and attenuation. No axillary or supraclavicular lymphadenopathy. No mediastinal, hilar or retrocrural lymphadenopathy. The heart and pericardium are within normal limits. The great vessels of the thorax are normal. Abdomen: Limited images through the upper abdomen show no abnormality of the visualized organs. Bones and Soft Tissues: Degenerative changes of the spine. IMPRESSION: 1. No evidence of pulmonary thromboembolic disease. 2. No pulmonary mass or consolidation. [] Heart Score: HEART Score for Chest Pain: HEART Score for Chest Pain Response (Comments) Value History Slighlty/Non-Suspicious 0 ECG Nonspecific Repolarizatio 1 Age >45 - < 65 1 Risk Factors 1 or 2 Risk Factors 1 Troponin < Normal Limit 0 Total 3 Risk Factors: Risk Factors: DM, Current or recent (<one month) smoker, HTN, HLP, family history of CAD, obesity. Risk Scores: Score 0 - 3: 2.5% MACE over next 6 weeks - Discharge Home Score 4 - 6: 20.3% MACE over next 6 weeks - Admit for Clinical Observation Score 7 - 10: 72.7% MACE over next 6 weeks - Early Invasive Strategies Course & Med Decision Making: Course & Med Decision Making Pertinent Labs and Imaging studies reviewed. (See chart for details) [] Dragon Disclaimer: Dragon Disclaimer: This electronic medical record was generated, in whole or in part, using a voice recognition dictation system. Departure Departure: Impression: Primary Impression: Near syncope Disposition: 01 DC HOME SELF CARE/HOMELESS Condition: STABLE Referrals: CESAR HERNANDEZ (PCP) Patient Instructions: Respiratory Syncytial Virus-Brief WESLY PIERRE MD Sep 19, 2020 10:06
[2020-09-19 11:03] LABS: BILIRUBIN,URINE NEG (NEG); CLARITY,URINE CLEAR; COLOR,URINE YELLOW; GLUCOSE,URINE NEG (NEG); NITRITE,URINE NEG (NEG); UROBILINOGEN,URINE 0.2 mg/dL (0.2 mg/dL)
[2020-09-19 11:04] LABS: BACTERIA,URINE FEW /HPF (0-FEW); HYALINE CASTS, URINE OCC /HPF; SQUAMOUS EPITHELIAL CELL,UR FEW /LPF
[2020-09-19] MEDS ORDERED: IOHEXOL 350 MG/ML 100 ML VIAL. IV ONE (11:45)
--- NOTE | 2020-09-19 12:18 | RAD ---
CTA CHEST INDICATION: PE, SYNCOPE, CHEST PAIN Comparison: Radiograph 04/25/2020. CT 03/22/2019. TECHNIQUE: Following the uneventful administration of intravenous contrast, 75 cc Omnipaque 350, axia l CT sections were obtained through the lungs and upper abdomen. Multiplanar reconstructions and MIP images were obtained. PQRS compliance statement: One or more of the following individualized dose reduction techniques were utilized for this examinat ion: 1. Automated exposure control 2. Adjustment of the mA and/or kV according to patient size 3. Use of iterative reconstruction technique FINDINGS: Pulmonary arteries: No evidence of pulmonary thrombolic disease. Lungs and Airways: No pulmonary mass or consolidation. No abnormality of the central airways. Pleura: The pleural spaces are normal. Heart and Mediastinum: The visualized thyroid is normal in size and attenuation. No axillary or supra clavicular lymphadenopathy. No mediastinal, hilar or retrocrural lymphadenopathy. The heart and peric ardium are within normal limits. The great vessels of the thorax are normal. Abdomen: Limited images through the upper abdomen show no abnormality of the visualized organs. Bones and Soft Tissues: Degenerative changes of the spine. IMPRESSION: 1. No evidence of pulmonary thromboembolic disease. 2. No pulmonary mass or consolidation. Electronically signed by: Kobe Davenport MD (09/19/2020 12:15 PM) [id number]
[2020-09-19 12:30] VITALS: BP 114/72
== END 2020-09-19 13:07 | disposition home or self-care (01) ==
LOC: ER 08:37
DX: R55 Syncope and collapse (principal); I10 Essential (primary) hypertension; Z88.5 Allergy status to narcotic agent
CPT/HCPCS: 36415; 71275; 80053; 81001; 82947; 83880; 84484; 85025; 85379; 87086; 93005; 99285; Q9967

== ENCOUNTER → 2020-10-23 | Outpatient (CLI) | payer OTHER ==
--- NOTE | 2020-10-23 15:43 | RAD ---
DATE: 10/23/2020 10:57 AM EXAM: DIGITAL SCREEN BILAT W/CAD HISTORY: Screening COMPARISON: 12/30/2018 Bilateral full field craniocaudal and mediolateral oblique images were obtained using digital technique. This study was interpreted with the benefit of Computerized Aided Detection (CAD). FINDINGS: Breast Density: FATTY The Breast Parenchyma is primarily fatty replaced. Breast parenchyma level density A. No suspicious masses, microcalcifications or architectural distortion is present to suggest malignancy in either breast. The visualized axillae are unremarkable. IMPRESSION: No mammographic evidence of malignancy. BI-RADS CATEGORY: 1 NEGATIVE RECOMMENDED FOLLOW-UP: 12M 12 MONTH FOLLOW-UP Annual screening mammography is recommended, unless clinically indicated sooner based on symptoms or change in physical exam. PQRS compliance statement: Patient information was entered into a reminder system with a target due date for the next mammogram. Mammography is a sensitive method for finding small breast cancers, but it does not detect them all and is not a substitute for careful clinical examination. A negative mammogram does not negate a clinically suspicious finding and should not result in delay in biopsying a clinically suspicious abnormality. "Our facility is accredited by the [employer] Mammography Program."
== END ==
LOC: MAMMO 09:41
PROVIDERS: ATTEND Physician Assistant Medical
DX: Z12.31 Encounter for screening mammogram for malignant neoplasm of breast (principal)
CPT/HCPCS: 77067

== ENCOUNTER → 2020-11-20 | Outpatient (CLI) | payer OTHER ==
--- NOTE | 2020-11-20 17:27 | RAD ---
EXAM: CT Abdomen without IV contrast INDICATION: Reason: RIGHT SIDED PULLING FEELING. HX OF RIGHT INGUINAL HERNIA. / Spl. Instructions: / History: TECHNIQUE: Multi-detector row CT images were acquired from the lung bases through the abdomen without the use of IV contrast. Sagittal and coronal images were acquired from the transaxial data. All CT s cans performed at this facility utilize dose optimization techniques as appropriate to the exam, incl uding the following: Automated exposure control and adjustment of the mA and/or KV according to patie nt size (this includes techniques or standardized protocols for targeted exams where dose is indicati on/reason for exam). IV CONTRAST: Administered ORAL CONTRAST: Not administered COMPARISON: 01/12/[address] FINDINGS: LOWER CHEST: Unremarkable LIVER: Hepatomegaly and diffuse hepatic steatosis with the liver measuring 19.4 cm craniocaudal exte nt. BILIARY SYSTEM: Gallbladder surgically absent. Bile ducts are not dilated. PANCREAS: Unremarkable SPLEEN: Unremarkable ADRENALS: Unremarkable KIDNEYS & URETERS: Unremarkable GASTROINTESTINAL: The stomach, small bowel, and colon are unremarkable. The appendix is normal. MESENTERY/PERITONEUM/RETROPERITONEUM: Unremarkable VASCULAR: Unremarkable LYMPH NODES: No adenopathy OSSEOUS & SOFT TISSUES: There is evidence of an interval right inguinal hernia repair. The inguinal canals are only partially imaged on this exam. IMPRESSION: No acute findings on noncontrast CT of the abdomen with hepatomegaly redemonstrated. There are interv al surgical changes compatible with a right inguinal hernia repair but now is not fully imaged on thi s examination. If clinically warranted, additional imaging by CT of the pelvis could be performed if it is felt the discomfort relates to prior inguinal hernia repair. Electronically signed by: Janel Estrada MD (11/20/2020 5:24 PM) [id number]
== END ==
LOC: CT 10:58
PROVIDERS: ATTEND Physician Assistant Medical
DX: K76.0 Fatty (change of) liver, not elsewhere classified (principal); K40.90 Unilateral inguinal hernia, without obstruction or gangrene, not specified as recurrent; Z90.49 Acquired absence of other specified parts of digestive tract
CPT/HCPCS: 74150

== ENCOUNTER → 2020-11-29 | Outpatient (CLI) | payer OTHER ==
--- NOTE | 2020-11-29 15:13 | RAD ---
CT pelvis without contrast dated 11/29/2020. COMPARISON: 01/12/2017. Clinical data indication: Pain. Inguinal hernia. TECHNIQUE: Contiguous axial imaging the pelvis performed without the administration of IV or oral contrast. One or more of the following individualized dose reduction techniques were utilized for this examinat ion: 1. Automated exposure control 2. Adjustment of the mA and/or kV according to patient size 3. Use of iterative reconstruction technique. FINDINGS: Small right inguinal hernia containing only fat. There is a tiny left inguinal hernia containing only fat. Small umbilical hernia containing only fat. Unopacified GI tract normal in caliber and contour. No bowel wall thickening. No inflammatory strandi ng in the mesentery. The appendix is normal in caliber. No ascites or lymphadenopathy. Abdominal aort a normal in caliber. Urinary bladder is nondistended. Uterus and adnexa are unremarkable. No free pelvic fluid. No pelvic adenopathy. Bone windows show no acute findings. Mild to moderate lower lumbar spondylosis. IMPRESSION: 1. There are small bilateral inguinal hernia containing only fat. 2. Otherwise no significant abnormality. Electronically signed by: Bonifacio Dodson MD (11/29/2020 3:10 PM) [id number]
== END ==
LOC: CT 13:58
PROVIDERS: ATTEND Physician Assistant Medical
DX: K40.90 Unilateral inguinal hernia, without obstruction or gangrene, not specified as recurrent (principal)
CPT/HCPCS: 72192

== ENCOUNTER 2021-02-27 06:37 | Emergency (ER) | payer OTHER ==
[~2021-02-27] VITALS: Ht 182.9 cm; Wt 122.7 kg
[2021-02-27] MEDS ORDERED: predniSONE 20 MG TABLET PO ONE (07:15)
[2021-02-27] MEDS ORDERED: LIDO:MAALOX 1:1 20 ML SINGLE DOSE. PO ONE (07:15)
[2021-02-27] MEDS ORDERED: CETIRIZINE HCL 10 MG TABLET PO ONE (07:20)
--- NOTE | 2021-02-27 08:18 | PHYS DOC ---
Past History Past Medical History: Hypertension Past Surgical History: Cholecystectomy, , Knee Replacement, Tubal ligation Additional Past Surgical Histo: rotator cuff, hernia, discectomy Alcohol Use: None Drug Use: None General Adult EDM: Chief Complaint: MULTIPLE COMPLAINTS HPI: HPI: Patient is a 60-year-old female coming in for pruritic rash to bilateral forearms. She states she woke up and had itching to her right elbow. She has been to forearm and other arm. Denies any new medications, detergents, soaps or animal exposure. But she put some Benadryl cream on it that has helped. Patient states she also has had intermittent chest pressure that comes and goes over the past week but has been constant since yesterday. States she had a history of reflux and says it feels similar but is not taking any antacids for it. Has a history of a laminectomy 2 weeks ago. Review of Systems: Review of Systems: Constitutional: Denies fever or chills Eyes: Denies change in visual acuity HENT: Denies nasal congestion or sore throat Respiratory: Denies cough or shortness of breath Cardiovascular: Denies chest pain or edema GI: Denies abdominal pain, nausea, vomiting, bloody stools or diarrhea : Denies dysuria Musculoskeletal: Denies back pain or joint pain Integument: Denies rash Neurologic: Denies headache, focal weakness or sensory changes Endocrine: Denies polyuria or polydipsia Lymphatic: Denies swollen glands Psychiatric: Denies depression or anxiety Current Medications: Current Meds: Current Medications Medications (Trade) Dose Ordered Sig/Ag Start Time Stop Time Status Last Admin Dose Admin Cetirizine HCl (ZyrTEC) 10 mg 1X ONCE 02/27/21 07:20 02/27/21 07:21 DC 02/27/21 07:23 10 MG Multi-Ingredient Mouthwash/Gargle (Gi Cocktail) 20 ml 1X ONCE 02/27/21 07:15 02/27/21 07:17 DC 02/27/21 07:21 20 ML Prednisone (Prednisone) 60 mg 1X ONCE 02/27/21 07:15 02/27/21 07:17 DC 02/27/21 07:21 60 MG Allergies: Allergies: Allergies Coded Allergies Type Severity Reaction Last Updated Verified morphine Adverse Reaction Mild N/V 10/08/15 Yes Physical Exam: PE: Constitutional: Well developed, well nourished, no acute distress, non-toxic appearance. [] HENT: Normocephalic, atraumatic, bilateral external ears normal, oropharynx moist, no oral exudates, nose normal. [] Eyes: PERRLA, EOMI, conjunctiva normal, no discharge. [] Neck: Normal range of motion, no tenderness, supple, no stridor. [] Cardiovascular:Heart rate regular rhythm, no murmur [] Lungs & Thorax: Bilateral breath sounds clear to auscultation [] Abdomen: Bowel sounds normal, soft, no tenderness, no masses, no pulsatile masses. [] Skin: Warm, dry, no erythema, no rash. [] Back: No tenderness, no CVA tenderness. [] Extremities: No tenderness, no cyanosis, no clubbing, ROM intact, no edema. [] Neurologic: Alert and oriented X 3, normal motor function, normal sensory function, no focal deficits noted. [] Psychologic: Affect normal, judgement normal, mood normal. [] Current Patient Data: Vital Signs: Vital Signs Date Time Temp Pulse Resp B/P (MAP) Pulse Ox O2 Delivery O2 Flow Rate FiO2 02/27/21 06:53 98.1 80 18 160/92 (114 98 Room Air EKG: EKG: Sinus rhythm, left axis deviation, heart rate 83 bpm, no ST elevation depression, no ectopy. Normal intervals. [] Radiology/Procedures: Radiology/Procedures: [address] [address] IMAGING REPORT Signed PATIENT: DAVID BECKWITH LACCOUNT: [id number] : 1960 LOCATION: ER AGE: 60 SEX: F EXAM STATUS: REG ER ORD. PHYSICIAN: WESLY PIERRE MD REASON: chest pain, elevated dimer of 2.12 PROCEDURE: CT ANGIOGRAPHY CHEST Examination: CT angiography chest with IV contrast HISTORY: History of chest pain, elevated d-dimer COMPARISON: None available TECHNIQUE: Axial CT angiographic images of chest were performed with IV contrast. Coronal and sagittal 3-D MIP reformats are performed Exposure: One or more of the following individualized dose reduction techniques were utilized for this examination: 1. Automated exposure control 2. Adjustment of the mA and/or kV according to patient size 3. Use of iterative reconstruction technique FINDINGS: 6 mm nodule identified in the right lobe of thyroid gland. Central airways are patent. The caliber of the aorta grossly appears unremarkable. The heart size grossly appears unremarkable. There is no evidence of filling defect identified in the main pulmonary arterial trunk and right and left main pulmonary arteries and visualized lobar, segmental branches of the pulmonary arteries. No radiologically significant mediastinal lymphadenopathy. Linear atelectasis left lingula and right lung base.Mild decreased attenuation noted in the liver likely hepatic steatosis. Moderate degenerative thoracic spine. IMPRESSION: 1. No evidence of pulmonary embolism. 2. Linear atelectasis left lingula and right lung base. 3. Mild hepatic steatosis. 4. 6 mm nodule identified in the right lobe of thyroid gland. Follow-up nonemergent ultrasound thyroid gland can be considered. Electronically signed by: Roland Mayorga MD (02/27/2021 9:31 AM) [id number] DICTATED AND SIGNED BY: ROLAND MAYORGA MD DATE: 02/27/21920 CC: WESLY PIERRE MD; CESAR HERNANDEZ ~MTH0 0 [] Heart Score: C/O Chest Pain: Yes HEART Score for Chest Pain: HEART Score for Chest Pain Response (Comments) Value History Slighlty/Non-Suspicious 0 ECG Normal 0 Age >45 - < 65 1 Risk Factors 1 or 2 Risk Factors 1 Troponin < Normal Limit 0 Total 2 Risk Factors: Risk Factors: DM, Current or recent (<one month) smoker, HTN, HLP, family history of CAD, obesity. Risk Scores: Score 0 - 3: 2.5% MACE over next 6 weeks - Discharge Home Score 4 - 6: 20.3% MACE over next 6 weeks - Admit for Clinical Observation Score 7 - 10: 72.7% MACE over next 6 weeks - Early Invasive Strategies Course & Med Decision Making: Course & Med Decision Making Pertinent Labs and Imaging studies reviewed. (See chart for details) No change in pain with GI cocktail. [] Dragon Disclaimer: Shonda Disclaimer: This electronic medical record was generated, in whole or in part, using a voice recognition dictation system. Departure Departure: Impression: Primary Impression: Hives Additional Impression: Atelectasis of both lungs Disposition: 01 HOME / SELF CARE / HOMELESS Condition: STABLE Referrals: MARY,CESAR M PA (PCP) Patient Instructions: Hives, Incentive Spirometer Scripts Prednisone (PREDNISONE) 50 Mg Tablet 1 TAB PO DAILY for steroid for 4 Days, #4 TAB Prov: WESLY PIERRE MD 02/27/21 WESLY PIERRE MD Feb 27, 2021 08:18
[2021-02-27 08:41] LABS: BASO % 1 % (0-3); EOS # 0.2 x10^3/uL (0.0-0.7); EOS % 4 % (0-3); HEMATOCRIT 37.6 % (36.0-47.0); HEMOGLOBIN 12.7 g/dL (12.0-15.5); LYMPH % 34 % (24-48); MEAN CORPUSCULAR HEMOGLOBIN 30 pg (25-35); MEAN CORPUSCULAR HGB CONC 34 g/dL (31-37); MEAN CORPUSCULAR VOLUME 88 fL (79-100); MONO # 0.7 x10^3/uL (0.0-1.1); MONO % 12 % (0-9); NEUT # 2.8 x10^3uL (1.8-7.7); NEUT % 49 % (31-73); PLATELET COUNT 337 x10^3/uL (140-400); RED BLOOD COUNT 4.25 x10^6/uL (3.50-5.40); RED CELL DISTRIBUTION WIDTH 14.9 % (11.5-14.5); WHITE BLOOD COUNT 5.8 x10^3/uL (4.0-11.0)
[2021-02-27 08:44] LABS: CALCIUM 9.1 mg/dL (8.5-10.1); CREATININE 0.9 mg/dL (0.6-1.0); GFR 63.9; POTASSIUM 3.6 mmol/L (3.5-5.1)
[2021-02-27 08:56] LABS: ALBUMIN 3.7 g/dL (3.4-5.0); ALBUMIN/GLOBULIN RATIO 1.1 (1.0-1.7); TOTAL BILIRUBIN 0.4 mg/dL (0.2-1.0); TOTAL PROTEIN 7.1 g/dL (6.4-8.2)
[2021-02-27] MEDS ORDERED: IOHEXOL 350 MG/ML 100 ML VIAL. IV ONE (09:15)
[2021-02-27] MEDS ORDERED: CONTRAST GIVEN. MC PRN (09:15)
--- NOTE | 2021-02-27 09:34 | RAD ---
Examination: CT angiography chest with IV contrast HISTORY: History of chest pain, elevated d-dimer COMPARISON: None available TECHNIQUE: Axial CT angiographic images of chest were performed with IV contrast. Coronal and sagitta l 3-D MIP reformats are performed Exposure: One or more of the following individualized dose reduction techniques were utilized for thi s examination: 1. Automated exposure control 2. Adjustment of the mA and/or kV according to patient size 3. Use of iterative reconstruction technique FINDINGS: 6 mm nodule identified in the right lobe of thyroid gland. Central airways are patent. The caliber of the aorta grossly appears unremarkable. The heart size grossly appears unremarkable. There is no joel dence of filling defect identified in the main pulmonary arterial trunk and right and left main pulmo nary arteries and visualized lobar, segmental branches of the pulmonary arteries. No radiologically s ignificant mediastinal lymphadenopathy. Linear atelectasis left lingula and right lung base.Mild decr eased attenuation noted in the liver likely hepatic steatosis. Moderate degenerative thoracic spine. IMPRESSION: 1. No evidence of pulmonary embolism. 2. Linear atelectasis left lingula and right lung base. 3. Mild hepatic steatosis. 4. 6 mm nodule identified in the right lobe of thyroid gland. Follow-up nonemergent ultrasound thyro id gland can be considered. Electronically signed by: Roland Mayorga MD (02/27/2021 9:31 AM) [id number]
[2021-02-27 09:49] VITALS: BP 111/57
[2021-02-27] MEDS ORDERED: PRED50TA PO (09:57)
--- NOTE | 2021-02-27 18:42 | EKG ---
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
== END 2021-02-27 10:22 | disposition home or self-care (01) ==
LOC: ER 06:37
DX: L50.9 Urticaria, unspecified (principal); J98.11 Atelectasis; R21 Rash and other nonspecific skin eruption; R07.89 Other chest pain; I10 Essential (primary) hypertension; Z90.49 Acquired absence of other specified parts of digestive tract; Z98.890 Other specified postprocedural states; Z98.51 Tubal ligation status; Z88.5 Allergy status to narcotic agent
CPT/HCPCS: 36415; 71275; 80053; 83690; 83880; 84484; 85025; 85379; 93005; 99285; J7512; Q9967

== ENCOUNTER 2021-03-03 05:40 | Emergency (ER) | payer OTHER ==
[~2021-03-03] VITALS: Ht 182.9 cm; Wt 126.8 kg
[~2021-03-03 05:40] MED LIST changes: +PRED50TA PO
[2021-03-03 06:00] VITALS: BP 144/74
[2021-03-03] MEDS ORDERED: maxide (06:09)
[2021-03-03] MEDS ORDERED: hydrocodone (06:09)
[2021-03-03] MEDS ORDERED: diphenhydrAMINE HCL 25 MG CAPSULE PO ONE (06:15)
[2021-03-03] MEDS ORDERED: predniSONE 20 MG TABLET PO ONE (06:15)
--- NOTE | 2021-03-03 06:20 | PHYS DOC ---
Past History Past Medical History: Hypertension Past Surgical History: Cholecystectomy, , Knee Replacement, Tubal ligation Additional Past Surgical Histo: rotator cuff, hernia, discectomy Alcohol Use: None Drug Use: None Adult General Chief Complaint Chief Complaint: SKIN PROBLEM HPI HPI Patient is a 60-year-old female presenting for skin issues. Was seen here 4 days prior for similar issues, had rash to bilateral forearms at that time. States she has been outside in the yard more than usual, reports her dogs were in [employer] and came in she was playing with them and they were jumping all over her. Reports having history of poison oak, reports diffuse itchy rash in various stages on various parts of body ever since. No anaphylaxis, tolerating airway and secretions, no feeling of throat closure, chest pain, shortness of breath, abdominal pain or other concerning symptoms. She has not taken anything in an attempt to alleviate her symptoms. She reports being on her way to [employer] to get Benadryl cream but wanted to stop her first for more therapy f irst. Does admit new medication use, hydrocodone for recent surgery, reports being on is a Z-Elmo in the past for similar episodes, has also recently finished a Medrol Dosepak Review of Systems Review of Systems Fourteen body systems of review of systems have been reviewed. See HPI for pertinent positives and negative responses, other diane all other systems are negative, non-pertinent or non-contributory Current Medications Current Medications Current Medications Medications (Trade) Dose Ordered Sig/Ag Start Time Stop Time Status Last Admin Dose Admin Diphenhydramine HCl (Benadryl) 25 mg 1X ONCE 03/03/21 06:15 03/03/21 06:16 DC Prednisone (Prednisone) 60 mg 1X ONCE 03/03/21 06:15 03/03/21 06:16 UNV Allergies Allergies Allergies Coded Allergies Type Severity Reaction Last Updated Verified morphine Adverse Reaction Mild N/V 03/03/21 Yes Physical Exam Physical Exam Constitutional: Well developed, well nourished, no acute distress, non-toxic appearance. HENT: Normocephalic, atraumatic, bilateral external ears normal, oropharynx moist, no oral exudates, nose normal. Eyes: PERRLA, EOMI, conjunctiva normal, no discharge. Neck: Normal range of motion, no tenderness, supple, no stridor. Cardiovascular: Heart rate regular, sinus rhythm, no murmurs rubs or gallops Lungs & Thorax: Bilateral breath sounds clear to auscultation Abdomen: Bowel sounds normal, soft, no tenderness, no masses, no pulsatile masses. Nonsurgical abdomen, no peritoneal signs Skin: Warm, dry, no erythema, no rash. Back: No tenderness, no CVA tenderness. Extremities: No tenderness, no cyanosis, no clubbing, ROM intact, no edema. Neurologic: Alert and oriented X 3, grossly normal motor & sensory function, no focal deficits noted. Psychologic: Affect normal, judgement normal, mood normal. Current Patient Data Vital Signs Vital Signs Date Time Temp Pulse Resp B/P (MAP) Pulse Ox O2 Delivery O2 Flow Rate FiO2 03/03/21 06:00 97.7 81 20 144/74 (97) 97 Room Air Lab Results Current Medications Medications (Trade) Dose Ordered Sig/Ag Route PRN Reason Start Time Stop Time Status Last Admin Dose Admin Diphenhydramine HCl (Benadryl) 25 mg 1X ONCE PO 03/03/21 06:15 03/03/21 06:16 DC 03/03/21 06:32 Prednisone (Prednisone) 60 mg 1X ONCE PO 03/03/21 06:15 03/03/21 06:18 DC 03/03/21 06:33 EKG EKG [] Radiology/Procedures Radiology/Procedures [] Heart Score Risk Factors: Risk Factors: DM, Current or recent (<one month) smoker, HTN, HLP, family history of CAD, obesity. Risk Scores: Risk Factors: DM, Current or recent (<one month) smoker, HTN, HLP, family history of CAD, obesity. Course & Med Decision Making Course & Med Decision Making Pertinent Labs and Imaging studies reviewed. (See chart for details) [] Dragon Disclaimer Dragon Disclaimer This electronic medical record was generated, in whole or in part, using a voice recognition dictation system. Departure Departure: Impression: Primary Impression: Hives Disposition: 01 HOME / SELF CARE / HOMELESS Condition: IMPROVED Referrals: CESAR HERNANDEZ (PCP) Patient Instructions: Hives Additional Instructions: You were seen for a rash. We think you have hives or urticaria. It is unclear what is causing your symptoms at this time but as disclosed, you believe you have been exposed to poison oak/sunny. You may take benadryl as needed for itching. It is recommended you use soothing measures such as oatmeal baths, cool/wet compresses, ice packs, topical menthol compounds, calamine lotion. 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 If you start to have shortness of breath, facial swelling, tongue swelling, difficulty swallowing, or any other concerning symptoms you should call 911 to return to the ED immediately. Scripts Prednisone (PREDNISONE) 20 Mg Tablet 40 MG PO DAILY for HIVES for 4 Days, #8 TAB Prov: MARCY SANCHEZ DO 03/03/21 MARCY SANCHEZ DO Mar 03, 2021 06:20
[2021-03-03] MEDS ORDERED: PRED20TA PO (07:24)
== END 2021-03-03 07:30 | disposition home or self-care (01) ==
LOC: ER 05:40
DX: L50.9 Urticaria, unspecified (principal); I10 Essential (primary) hypertension; Z90.49 Acquired absence of other specified parts of digestive tract; Z98.51 Tubal ligation status; Z88.6 Allergy status to analgesic agent
CPT/HCPCS: 99283; J7512; Q0163